=== PATIENT | male | born 1940 | race African-American/Black ===

== ENCOUNTER 2017-02-17 11:14 | Emergency (ER) | payer MEDICARE ==
[~2017-02-17] VITALS: Ht 177.8 cm; Wt 65.0 kg
[~2017-02-17 11:14] MED LIST: ANTI12.5 PO
[2017-02-17 11:21] VITALS: BP 155/68; PULSE 92; RESP 16; TEMP 97.9; O2SAT 97
--- NOTE | 2017-02-17 11:39 | PD ---
HPI Chief Complaint: Injury Time Seen by Provider: 11:26 Travel History International Travel<30 days: No Contact w/Intl Traveler<30days: No Traveled to known affect area: No History of Present Illness HPI Patient is a 77-year-old male presenting to the emergency room for evaluation of right lower back pain that radiates down his right leg. Patient states it started a few days ago when he lifted a lawnmower into the back of his truck. Patient states pain is 7 out of 10 and states that shooting, he has been rubbing it but has not taken any medications to alleviate the pain. Patient states pain is worse with standing for long periods of time. He denies any bladder or bowel incontinence, no saddle paresthesia, no weakness or numbness in lower extremities. Patient is ambulatory in the emergency department. FOR[facility]LY [facility], LATER [facility] Past Medical History Diminished Hearing: No Hypertension: Yes ?: Not Past Surgical History Surgical History: No Previous Surgery Social History Alcohol Use: No Tobacco Use: No Substance Use: No Allergies-Medications (Allergen,Severity, Reaction): Coded Allergies: No Known Allergies (Verified , 01/10/08) Reported Meds & Prescriptions Reported Meds & Active Scripts Active Reported Enalapril (Enalapril Maleate) 2.5 Mg Tab 2.5 Mg PO DAILY Review of Systems Except as stated in HPI: all other systems reviewed are Neg Musculoskeletal: Positive: Myalgias Physical Exam Narrative GENERAL: Well-developed, well-nourished, alert elderly male. Resting comfortably in no acute distress. SKIN: Warm and dry. HEAD: Atraumatic. Normocephalic. EYES: Pupils equal and round. No scleral icterus. No injection or drainage. ENT: No nasal bleeding or discharge. Mucous membranes pink and moist. NECK: Trachea midline. No JVD. CARDIOVASCULAR: Regular rate and rhythm. RESPIRATORY: No accessory muscle use. Clear to auscultation. Breath sounds equal bilaterally. GASTROINTESTINAL: Abdomen soft, non-tender, nondistended. Hepatic and splenic margins not palpable. MUSCULOSKELETAL: Extremities without clubbing, cyanosis, or edema. No obvious deformities. TTP in the right paraspinal musculature lumbar region, no spinal tenderness or step-off noted. Patient is neurovascularly intact. NEUROLOGICAL: Awake and alert. No obvious cranial nerve deficits. Motor grossly within normal limits. Five out of 5 muscle strength in the arms and legs. Normal speech. PSYCHIATRIC: Appropriate mood and affect; insight and judgment normal. Data Data Last Documented VS Vital Signs Date Time Temp Pulse Resp B/P (MAP) Pulse Ox O2 Delivery O2 Flow Rate FiO2 02/17/17 11:21 97.9 92 16 155/68 (97) 97 Orders Orders Ketorolac Inj (Toradol Inj) (02/17/17 11:45) Orphenadrine Inj (Norflex Inj) (02/17/17 11:45) Dexamethasone Inj (Decadron Inj) (02/17/17 11:45) MDM Medical Decision Making Medical Screen Exam Complete: Yes Emergency Medical Condition: Yes Interpretation(s) Vital Signs Date Time Temp Pulse Resp B/P (MAP) Pulse Ox O2 Delivery O2 Flow Rate FiO2 02/17/17 11:21 97.9 92 16 155/68 (97) 97 Differential Diagnosis Lumbar strain versus spasm versus radiculopathy versus other Narrative Course Patient is 77-year-old male presenting with right lower back pain that started after he lifted a lawnmower into the back of his truck a few days ago. Patient is neurologically intact, has full range of motion in all extremities, he is ambulatory emergency department. Patient has not trialed any conservative management prior to presenting to the emergency Department. Medications ordered to alleviate pain, will reassess. Patient reassessed, he reports improvement in his pain. Patient encouraged to follow-up with his primary doctor. He was encouraged to apply warm moist heat to the area, continue range of motion exercises, avoid exacerbating activities, avoid bed rest. He was encouraged to take medications as directed, return to emergency department for any new or worsening symptoms. Patient was advised he should begin to feel better with or without treatment in a few days. Diagnosis Primary Impression: Strain of lumbar paraspinal muscle Qualified Codes: S39.012A - Strain of muscle, fascia and tendon of lower back , initial encounter Referrals: Primary Care Physician 2 days Patient Instructions: General Instructions, Muscle Spasm (ED), Muscle Strain ( ED) Additional Instructions: Follow-up with your primary doctor Take medications as directed Apply warm moist heat to affected area, continue range of motion exercises, avoid bed rest, avoid exacerbating activities Return to emergency department for any new or worsening symptoms Med/Other Pt SpecificInfo: Prescription(s) given Scripts Cyclobenzaprine (Flexeril) 5 Mg Tab 5 MG PO TID Y for MUSCLE SPASM, #21 TAB 0 Refills Prov: Lilliana Rodriguez 02/17/17 Meloxicam (Meloxicam) 15 Mg Tab 15 MG PO DAILY for Arthritis Pain, #10 TAB 0 Refills Prov: Lilliana Rodriguez 02/17/17 Disposition: 01 DISCHARGE HOME Condition: Stable Lilliana Rodriguez Feb 17, 2017 11:39
[2017-02-17] MEDS ORDERED: DEXAMETHASONE SOD PHOS 4 MG/ML VIAL IM ONE (11:45)
[2017-02-17] MEDS ORDERED: KETOROLAC TROMETHAMINE 60 MG/2 ML (IM) VIAL IM ONE (11:45)
[2017-02-17] MEDS ORDERED: ORPHENADRINE INJ 60 MG/2 ML AMP IM ONE (11:45)
[2017-02-17] MEDS ORDERED: ENAL2.5T PO (11:49)
[2017-02-17] MEDS ORDERED: MELO-1 PO (11:59)
[2017-02-17] MEDS ORDERED: CYCL5TAB PO (11:59)
== END 2017-02-17 12:14 | disposition home or self-care (01) ==
LOC: NEPD 11:14
DX: S39.012A Strain of muscle, fascia and tendon of lower back, initial encounter (principal); I10 Essential (primary) hypertension; X50.0XXA Overexertion from strenuous movement or load, initial encounter
CPT/HCPCS: 96372; 99284; J1100; J1885; J2360